=== PATIENT | male | born 1985 | race American Indian/Alaskan Native ===

== ENCOUNTER 2020-12-15 05:38 | Emergency (ER) | payer SELFPAY ==
[2020-12-15 05:59] VITALS: BP 112/71
[2020-12-15] MEDS ORDERED: ACETAMINOPHEN 500 MG TAB PO ONE (06:02)
[2020-12-15] MEDS ORDERED: IBUPROFEN 600 MG TAB PO ONE (06:02)
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
== END 2020-12-15 06:38 | disposition home or self-care (01) ==
LOC: ED 05:38
DX: S86.911A Strain of unspecified muscle(s) and tendon(s) at lower leg level, right leg, initial encounter (principal); Z79.899 Other long term (current) drug therapy; V49.49XA Driver injured in collision with other motor vehicles in traffic accident, initial encounter; Y93.89 Activity, other specified; Y92.488 Other paved roadways as the place of occurrence of the external cause; Y99.8 Other external cause status
CPT/HCPCS: 99282